=== PATIENT | male | born 1985 | race Caucasian/White ===

== ENCOUNTER 2021-05-21 08:42 | Observation (INO) | payer BC ==
[2021-05-21] MEDS ORDERED: 50% Dextrose in Water 50 ML Syringe IVPUSH PRN ×2 (09:11→12:52)
[2021-05-21] MEDS ORDERED: Glucagon,Human Recombinant 1 MG Vial IM PRN ×2 (09:11→12:52)
[2021-05-21] MEDS ORDERED: LEVEMIR 100 UNIT/ML SUBCUT ONE (09:45)
[2021-05-21] MEDS: INSULIN LISPRO 100 UNIT/ML SUBCUT SCH ×2 (12:01→17:54)
[2021-05-21] MEDS ORDERED: metFORMIN 500 MG Tab - PTOM PO SCH (13:00)
[2021-05-21] MEDS ORDERED: Insulin Lispro 100 Unit/ML 3 ML KwikPen SUBCUT SCH (13:00)
[2021-05-21] MEDS ORDERED: LEVEMIR 100 UNIT/ML SUBCUT SCH (21:00)
[2021-05-21] MEDS ORDERED: Non-Formulary Medication 1 Each (Insulin Detemir 100 UNIT/ML Insuln.Pen) SUBCUT SCH (21:00)
== END 2021-05-21 18:12 | disposition home or self-care (01) ==
LOC: KA.MS 09:29
PROVIDERS: ADMIT Nurse Practitioner Family; ATTEND Nurse Practitioner Family
DX: E11.65 Type 2 diabetes mellitus with hyperglycemia (principal); E66.01 Morbid (severe) obesity due to excess calories; Z79.4 Long term (current) use of insulin; Z79.84 Long term (current) use of oral hypoglycemic drugs; Z20.822 Contact with and (suspected) exposure to COVID-19; Z68.42 Body mass index [BMI] 45.0-49.9, adult
CPT/HCPCS: 93005; A9270-GY; G0378; J1815-GY; U0002